=== PATIENT | female | born 2000 | race Caucasian/White ===

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

== ENCOUNTER → 2019-01-09 | Outpatient (CLI) | payer BC, MEDICAID, SELFPAY ==
[2019-01-09 16:53] LABS: D-Dimer Quantitative (DVT/PE) < 0.27 FEU/ug/m (0.27-0.49)
== END | disposition home or self-care (01) ==
LOC: LABSPEC 16:15
PROVIDERS: Referring Provider Family Medicine; Visit Provider Family Medicine
DX: R07.9 Chest pain, unspecified (principal); R53.83 Other fatigue
CPT/HCPCS: 85379

== ENCOUNTER → 2019-01-28 10:57 | Outpatient (REF) | payer BC, MEDICAID, SELFPAY ==
[2019-01-24 13:32] VITALS: BMI 25.9
== END ==
LOC: CVS 10:57
PROVIDERS: Family Provider Family Medicine; PCP Family Medicine; Referring Provider Physician Assistant Medical; Visit Provider Physician Assistant Medical
DX: R00.2 Palpitations (principal); R55 Syncope and collapse
CPT/HCPCS: 93270

== ENCOUNTER 2019-12-16 09:55 | Emergency (ER) | payer BC, MEDICAID, SELFPAY ==
[2019-01-24 13:32] VITALS: BMI 25.9
[2019-12-16 09:56] VITALS: BP 118/72; PULSE 121; RESP 20; TEMP 36.9; O2SAT 99; BMI 24.3
[2019-12-16 10:17] VITALS: BP 118/72; PULSE 112; RESP 20; TEMP 36.9; O2SAT 98
--- NOTE | 2019-12-16 11:01 | RAD_ITS ---
STUDY: X-RAY CHEST REASON FOR EXAM: Female, 19 years old. fever, sob acute on-set today TECHNIQUE: PA and lateral views of the chest. COMPARISON: Comparison is made with prior study dated March 03, 2017. FINDINGS: The lungs are clear and expanded. There is no demonstrated pleural abnormality. Normal size heart. Normal mediastinum and kay. Normal visualized pulmonary arteries. Normal visualized aortic arch and descending thoracic aorta. Normal visualized thoracic spine. Normal visualized ribs, clavicles, and shoulders. There is no demonstrated abnormality of the visualized soft tissue structures of the upper abdomen. RAD/Chest PA and Lateral IMPRESSION: Normal x-ray examination of the chest. Electronically Signed: Felipe Del Valle, at 12:40 EDT , Service support ,
[2019-12-16 11:16] LABS: Bacteria 0 SEEN /hpf (None Seen); Squamous Epithelial Cells - UA 0 SEEN /hpf (5-10)
[2019-12-16 11:24] LABS: Color, Urine Yellow (Yellow); Glucose, Dipstick Normal (Normal); Ketone-Dipstick 5 mg/dl (Negative); Leukocyte Esterase-Dipstick 25 /ul (Negative); Nitrite-Dipstick Negative (Negative); Occult Blood-Urine 10 /ul (Negative); Protein-Dipstick Negative (Negative); Specific Gravity, Urine 1.015 (1.002-1.030); Urine Bilirubin Dipstick Negative (Negative); Urine Clarity Clear (Clear); Urine Urobilinogen 1 mg/dl (Normal); Urine pH 6.5 (5.0 - 8.0)
[2019-12-16] MEDS: 0.9% Normal Saline 1,000 ML 1000 ML IV (11:34)
[2019-12-16 11:41] LABS: Absolute Lymphocyte Count 0.72 X10^3/uL (0.83-4.51); Absolute Neutrophil Count 15.4 X10^3/uL (2.0-7.7); Basophil# 0.04 X10^3/uL; Basophil% 0.2 % (0-1); Hematocrit 42.5 % (37-47); Hemoglobin 14.1 g/dL (12.0-15.0); Lymphocyte # 0.72 X10^3/ul (4.0); Lymphocyte % 4.3 % (19-41); Mean Corp Hgb Conc 33.2 g/dL (32-36); Mean Corpuscular Hgb 29.3 pg (27.0-32.0); Mean Corpuscular Volume 88.4 fL (81-99); Mean Platelet Vol. 9.6 fl (6.2-12.0); Monocyte# 0.63 X10^3/uL; Monocyte% 3.7 % (0-10); NRBC Flagged by Analyzer 0 % (0-5); Neutrophil # 15.35 X10^3/uL (2.7-7.7); Neutrophil % 91.3 % (47-70); Platelet Count 280 K/mm3 (150-450); RBC Distribution Width CV 12.8 % (11.6-14.6); RBC Distribution Width SD 41.1 fl (35.1-43.9); Red Blood Count 4.81 M/mm3 (4.2-5.4); White Blood Count 16.8 K/mm3 (4.4-11.0)
[2019-12-16 11:42] LABS: Mucous, Urine 1+ /hpf (<or=2+); Red Blood Cells-Urine 0-5 SEEN /hpf (0-5); White Blood Cells 0-5 SEEN /hpf (0-5)
[2019-12-16 11:56] LABS: ALB/GLOB Ratio 0.9 RATIO (0.9-2.4); AST(SGOT) 17 U/L (15-37); Alanine Aminotransfer ALT/SGPT 23 U/L (13-56); Alkaline Phosphatase 63 U/L (45-117); Anion Gap 7 (5-15); BUN 11 mg/dL (7-18); BUN/Creat Ratio 13.7 RATIO (10-20); Calcium,Total 9.3 mg/dL (8.5-10.1); Chloride 104 mmol/L (98-107); EST Glomerular Filtration Rate 96 mL/min (>60); Est Glom Filt Rate - Afr Amer 116 mL/min (>60); Estimated Creatinine Clearance 113.16 ml/min; Globulin 4.7 g/dL (2.2-4.2); Glucose 90 mg/dL (74-106); Potassium 3.8 mmol/L (3.5-5.1); Protein, Total 8.7 g/dL (6.4-8.2); Sodium Level 136 mmol/L (136-145)
--- NOTE | 2019-12-16 13:37 | ED.VISSUMM ---
- ER Visit Summary Date of Service: 12/16/19 Chief Complaint: Fever, shortness of breath, and sore throat. History of Present Illness: The patient is a 19 F who presents with fever, shortness of breath, and sore throat that began today. Patient states this began when she woke up today. Patient states her temperature at home was 99.5. Patient states she feels short of breath. Patient admits to some pain in her chest with deep breathing. Patient denies any cough. Patient states she took Tylenol at 0700 with some improvement. Patient admits to generalized myalgias. Patient describes this pain as sharp. Physical Examination: Vital signs are stable except for a tachycardia of 121. Patient is afebrile. Patient is in no acute distress. Oral mucosa is pink and moist. Oropharynx is mildly erythematous. Neck is supple. Trachea is midline. There is no JVD. Heart was regular and tachycardic. Lungs are clear and equal bilaterally. Abdomen is soft. Bowel sounds are normal. There is no tenderness. Extremities are intact. There is no edema noted. Cranial nerves II through XII are intact. There are no focal motor or sensory deficits noted. Test Results: CBC shows a mild leukocytosis of 16.8. Comprehensive metabolic profile was within normal limits. Urinalysis does not show any evidence of urinary tract infection. PA and lateral chest x-ray was obtained. There is no acute cardiopulmonary process. This was interpreted by the radiologist and myself. Rapid strep was obtained and was negative. Rapid flu was obtained and was negative. RSV swab was obtained and was negative. Emergency Department Course and Treatment: Patient was given IV fluids. Patient was feeling better on reevaluation. Patient's heart rate improved. Patient was advised that this is most likely a viral illness. Patient was instructed to drink plenty of fluids. Patient was instructed to continue Tylenol as needed for any aches or fevers. Patient was instructed to follow-up with her primary care physician in 5 to 7 days. Patient was instructed return if worse in any way. Patient understood and was agreeable with the plan. All questions were answered. Disposition: Discharge home Impression: Viral pharyngitis This note was generated with [employer] software. It may contain incorrect words, spelling, and punctuation that were not noted in review of the chart prior to signing ED Disposition - Plan for ED Patient: Disposition: Home or Assisted Living Diagnosis: Viral pharyngitis Instructions: PHARYNGITIS, Viral Referrals: Bhaskar Bruce MD [Primary Care Provider] - 5-7 Days
[2019-12-16 13:55] VITALS: BP 125/74; PULSE 115; RESP 17; O2SAT 100
== END 2019-12-16 13:57 | disposition home or self-care (01) ==
PROVIDERS: Emergency Provider Emergency Medicine; PCP Family Medicine
DX: J02.9 Acute pharyngitis, unspecified (principal); R06.02 Shortness of breath; R00.0 Tachycardia, unspecified; F17.290 Nicotine dependence, other tobacco product, uncomplicated; Z79.899 Other long term (current) drug therapy
CPT/HCPCS: 71046; 80053; 81001; 85025; 87804; 87807; 87880; 96360; 96361; 99283; J7030; A4216

== ENCOUNTER 2020-05-28 13:42 | Emergency (ER) | payer BC, MEDICAID, SELFPAY ==
[2020-05-28 13:44] VITALS: BP 136/71; PULSE 77; RESP 16; TEMP 36.3; O2SAT 100; BMI 24.9
--- NOTE | 2020-05-28 14:19 | ED.VISSUMM ---
- ER Visit Summary Date of Service: 05/28/20 Chief Complaint: Pelvic and suprapubic abdominal pain History of Present Illness: The patient is a 20 F no history of syncope. Patient this is a 2-day history of suprapubic right lower quadrant abdominal pain. Denies any fever chills. Nausea without vomiting. She is a history of chronic diarrhea. No constipation. No dysuria. No vaginal bleeding or discharge. Last menstrual period was a week ago was slightly irregular. States she saw her [facility]'s office this week has an exam by 1 of the OBs there which they thought was unremarkable and also a pelvic ultrasound which I thought was unremarkable and reportedly a negative test. She denies any trauma. Physical Examination: Appearing young female. Vital signs stable afebrile. H EENT exam unremarkable. Moist extremities. Neck nontender no lymphadenopathy. Lungs clear to auscultation. Heart regular rhythm no murmur. Abdomen soft. Nondistended. Normal bowel sounds. No peritoneal signs. She is mildly tender suprapubically in the right lower quadrant. She is not impressively tender. There is no obvious hernia or mass. No signs of obstruction. Upper quadrants and left side of her abdomen is nontender. Patient is moving all 4 extremities. Back nontender. Neurologically she is awake and alert. Test Results: White count of 9. Hemoglobin 13. No bands. Chemistries unremarkable normal creatinine and gap. UA normal no signs of infection or any blood. Serum test negative. Repeat exam at 1623 patient is doing well. Abdomen is benign very minimal tenderness to the right lower quadrant but its lower and more medial than McBurney's point. She is already had a negative ultrasound I do not feel she needs a CAT scan. I rechecked her temperature is 91 I do still clinically feel this is appendicitis. Patient knows to follow-up if she is not improving or return if she is feeling worse. Emergency Department Course and Treatment: Patient with suprapubic and mild right lower quadrant abdominal pain. In the differential but clinically does not come off is an acute appendicitis. Work-up by her [facility]ICATION SPECIAL[facility]'s office with a negative pelvic exam she just had one done in the last several days by an [facility]ICATION [facility] physician. Treatment Plan: Motrin for pain. Follow-up with your doctor if not improving. Return if worse. Disposition: Discharge Impression: Lower abdominal pain uncertain etiology This note was generated with [employer] dictation software. It may contain incorrect words, spelling, and punctuation that were not noted in review of the chart prior to signing ED Disposition - Plan for ED Patient: Referrals: Bhaskar Bruce MD [Primary Care Provider] -
[2020-05-28 14:50] LABS: Bacteria 0 SEEN /hpf (None Seen); Mucous, Urine 0 SEEN /hpf (<or=2+); Red Blood Cells-Urine 0 SEEN /hpf (0-5)
[2020-05-28 14:54] LABS: Absolute Lymphocyte Count 2.76 X10^3/uL (0.83-4.51); Absolute Neutrophil Count 5.5 X10^3/uL (2.0-7.7); Basophil# 0.06 X10^3/uL; Basophil% 0.7 % (0-1); Eosinophil# 0.14 X10^3/uL; Eosinophils% 1.6 % (0-5); Hematocrit 39.6 % (37-47); Hemoglobin 13.4 g/dL (12.0-15.0); Lymphocyte # 2.76 X10^3/ul (4.0); Lymphocyte % 30.7 % (19-41); Mean Corp Hgb Conc 33.8 g/dL (32-36); Mean Corpuscular Hgb 29.5 pg (27.0-32.0); Mean Corpuscular Volume 87.2 fL (81-99); Mean Platelet Vol. 9.8 fl (6.2-12.0); Monocyte% 5.6 % (0-10); NRBC Flagged by Analyzer 0 % (0-5); Neutrophil # 5.51 X10^3/uL (2.7-7.7); Neutrophil % 61.2 % (47-70); Platelet Count 364 K/mm3 (150-450); RBC Distribution Width CV 12.4 % (11.6-14.6); RBC Distribution Width SD 39.3 fl (35.1-43.9); Red Blood Count 4.54 M/mm3 (4.2-5.4)
[2020-05-28 14:55] LABS: Color, Urine Yellow (Yellow); Glucose, Dipstick Normal (Normal); Ketone-Dipstick Negative (Negative); Leukocyte Esterase-Dipstick 25 /ul (Negative); Nitrite-Dipstick Negative (Negative); Occult Blood-Urine Negative /ul (Negative); Protein-Dipstick Negative (Negative); Specific Gravity, Urine 1.005 (1.002-1.030); Urine Bilirubin Dipstick Negative (Negative); Urine Clarity Sl. Cloudy (Clear); Urine Urobilinogen Normal (Normal)
[2020-05-28 14:58] LABS: Internal QC Validated? YES +Cl - CLEAR BKGD; Pregnancy, Serum, hCG Quali. NEGATIVE Negative
[2020-05-28 15:08] LABS: Anion Gap 3 (5-15); BUN 8 mg/dL (7-18); BUN/Creat Ratio 10.7 RATIO (10-20); Calcium,Total 9.2 mg/dL (8.5-10.1); Chloride 109 mmol/L (98-107); Creatinine, Serum 0.75 mg/dL (0.55-1.02); EST Glomerular Filtration Rate 104 mL/min (>60); Est Glom Filt Rate - Afr Amer 125 mL/min (>60); Estimated Creatinine Clearance 119.69 ml/min; Glucose 78 mg/dL (74-106); Potassium 4.1 mmol/L (3.5-5.1); Sodium Level 137 mmol/L (136-145)
[2020-05-28 15:09] LABS: Squamous Epithelial Cells - UA 0-5 SEEN /hpf (5-10); White Blood Cells 0-5 SEEN /hpf (0-5)
--- NOTE | 2020-05-28 16:29 | ED.DEP ---
ED Disposition - Plan for ED Patient: Disposition: Home or Assisted Living Instructions: ED Abdominal Pain Unkn Cause Fem Referrals: Bhaskar Bruce MD [Primary Care Provider] - 1-2 Days if not improving Additional Instructions: Normal. This does not appear to be an appendicitis. Tylenol and/or Motrin for pain. Follow-up with your doctor if not improving. Return to emergency department if fever, intractable vomiting or feeling worse.
[2020-05-28 16:34] VITALS: BP 121/76; PULSE 52; RESP 16; O2SAT 98
== END 2020-05-28 16:34 | disposition home or self-care (01) ==
PROVIDERS: Emergency Provider Emergency Medicine; PCP Family Medicine
DX: R10.30 Lower abdominal pain, unspecified (principal)
CPT/HCPCS: 80048; 81001; 84703; 85025; 99283; A4216

== ENCOUNTER → 2021-01-22 09:11 | Outpatient (CLI) | payer BC, MEDICAID, SELFPAY ==
[2021-01-22 08:29] VITALS: BMI 24.9
--- NOTE | 2021-01-22 09:20 | RAD_ITS ---
STUDY: X-RAY CHEST REASON FOR EXAM: Female, 20 years old. chest pain TECHNIQUE: PA and lateral views of the chest. COMPARISON: 12/16/2019 FINDINGS: The lungs are clear and expanded. There is no demonstrated pleural abnormality. Normal size heart. Normal mediastinum and kay. Normal visualized pulmonary arteries. Normal visualized aortic arch and descending thoracic aorta. Normal visualized thoracic spine. Normal visualized ribs, clavicles, and shoulders. There is no demonstrated abnormality of the visualized soft tissue structures of the upper abdomen. RAD/Chest PA and Lateral IMPRESSION: Normal x-ray examination of the chest. Electronically Signed: Benji Blas MD at 8:43 EDT Tel , Service support ,
== END ==
PROVIDERS: PCP Family Medicine; Referring Provider Physician Assistant Medical; Visit Provider Physician Assistant Medical
DX: R07.9 Chest pain, unspecified (principal)
CPT/HCPCS: 71046

== ENCOUNTER → 2021-05-17 | Outpatient (CLI) | payer BC, MEDICAID, SELFPAY ==
[2021-05-18 20:08] LABS: Chlamydia By Nucleic Acid AMP Positive (Negative)
[2021-05-19 08:44] LABS: HPV Reflexed? NOT INDICATED
[2021-05-19 09:18] LABS: Gonococcus By Nucleic Acid AMP Negative (Negative)
== END | disposition home or self-care (01) ==
LOC: LABSPEC 10:43
PROVIDERS: PCP Family Medicine; Visit Provider Obstetrics & Gynecology
DX: Z12.4 Encounter for screening for malignant neoplasm of cervix (principal)
CPT/HCPCS: 87491; 87591; 88175; G0145

== ENCOUNTER → 2021-07-12 | Outpatient (CLI) | payer BC, MEDICAID, SELFPAY | END | disposition home or self-care (01) | PROVIDERS: PCP Family Medicine; Visit Provider Student in an Organized Health Care Education/Training Program | DX: Z11.3 Encounter for screening for infections with a predominantly sexual mode of transmission (principal) ==